=== PATIENT | female | born 1945 | race Caucasian/White ===

== ENCOUNTER 2016-12-21 21:21 | Emergency (ER) | payer MEDICARE, BC ==
[2016-12-21] MEDS ORDERED: Ketorolac 60 MG/2 ML SDV IM ONE (21:46)
--- NOTE | 2016-12-21 22:18 | EDM.PDOC ---
[id number] 4d MEDICAL Time Seen by Provider: 12/21/16 21:40 Source of Information: Reports: Patient, EMS History Limitations: Reports: Intoxication - History of Present Illness INITIAL COMMENTS - FREE TEXT/NARRATIVE: 71-year-old female brought in by EMS after being found unresponsive by her . She was out and had "3 brandies" and went into the bathroom and didn't come out. Her went in and found her lying on the floor and was difficult to arouse. When EMS arrived she was alert and communicating been slurring her speech and appeared intoxicated. There was no outward evidence of injury. Her glucose was checked and was normal. Now that she is here in the emergency room she is complaining of a frontal headache and wants something for pain. No nausea or vomiting, no visual disturbance, she denies any chest wall, abdominal or extremity pain Onset: Unknown/Unsure Location: Reports: Head Severity: Moderate Associated Symptoms: Reports: Headaches, Malaise, Other (Patient appears very intoxicated). Denies: Fever/Chills, Loss of Appetite, Nausea/Vomiting Bilateral Headache Pain Score (Numeric/FACES): 9 - Related Data Allergies Allergy/AdvReac Type Severity Reaction Status Date / Time Penicillins Allergy Swelling Verified 06/19/16 22:53 Home Meds: Home Meds Ezetimibe [Zetia] 1 tab PO DAILY 06/19/16 [History] Insulin Aspart [NovoLOG] 4 units SQ QID 06/19/16 [History] Insulin Glarg,Human.Rec.Analog [Lantus Solostar] 16 units SQ BEDTIME 06/19/16 [ History] Propranolol [Inderal LA] 80 mg PO DAILY 06/19/16 [History] amLODIPine [Norvasc] 2.5 mg PO DAILY 06/19/16 [History] traMADol [Ultram] 50 mg PO ASDIRECTED PRN 06/19/16 [History] Past Medical History HEENT History: Reports: Cataract, Impaired Vision Cardiovascular History: Reports: High Cholesterol, Hypertension [employer] [facility] History: Reports: Endocrine/Metabolic History: Reports: Diabetes, Type I - Infectious Disease History Infectious Disease History: Reports: Chicken Pox, Measles, Mumps - Past Surgical History GI Surgical History: Reports: Appendectomy, Cholecystectomy Female Surgical History: Reports: Hysterectomy Social & Family History - Tobacco Use Smoking Status *Q: Current Some Day Smoker Years of Tobacco use: 20 Packs/Tins Daily: 0.5 Used Tobacco, but Quit: No Second Hand Smoke Exposure: No - Caffeine Use Caffeine Use: Reports: Soda - Alcohol Use Days Per Week of Alcohol Use: 3 Number of Drinks Per Day: 3 Total Drinks Per Week: 9 Date of Last Drink: 12/21/16 Time of Last Drink: 18:30 - Recreational Drug Use Recreational Drug Use: No ED ROS GENERAL - Review of Systems Review Of Systems: See Below Constitutional: Denies: Fever, Chills Respiratory: Denies: Shortness of Breath, Cough Cardiovascular: Denies: Chest Pain GI/Abdominal: Denies: Abdominal Pain, Nausea, Vomiting : Reports: No Symptoms Neurological: Reports: Headache ED EXAM, GENERAL - Physical Exam Exam: See Below Exam Limited By: No Limitations General Appearance: Alert, No Apparent Distress Eye Exam: Bilateral Eye: EOMI, PERRL Head: Atraumatic Neck: Supple, Non-Tender Respiratory/Chest: No Respiratory Distress, Lungs Clear Extremities: Normal Inspection Neurological: Alert, Other (Patient is slurring her speech significantly, appears intoxicated) Skin Exam: Warm, Dry Course - Vital Signs Last Recorded V/S: Last Vital Signs Temp 97.7 F 12/21/16 21:27 Pulse 58 L 12/21/16 22:33 Resp 16 12/21/16 21:27 BP 88/47 L 12/21/16 22:33 Pulse Ox 89 L 12/21/16 22:33 - Orders/Labs/Meds Orders: Active Orders 24 hr Category Date Time Status Head wo Cont [CT] Stat Exams 12/21/16 21:45 Taken Labs: Laboratory Tests 12/21/16 12/21/16 12/21/16 Range/Units 22:07 22:07 22:07 WBC 10.6 (4.5-11.0) K/uL RBC 4.55 (3.30-5.50) M/uL Hgb 14.7 (12.0-15.0) g/dL Hct 42.3 (36.0-48.0) % MCV 93 (80-98) fL MCH 32 H (27-31) pg MCHC 35 (32-36) % Plt Count 321 (150-400) K/uL Neut % (Auto) 34 L (36-66) % Lymph % (Auto) 53 H (24-44) % [place] % (Auto) 7 H (2-6) % Eos % (Auto) 5 H (2-4) % Baso % (Auto) 1 (0-1) % Sodium 140 (140-148) mmol/L Potassium 3.6 (3.6-5.2) mmol/L Chloride 104 (100-108) mmol/L Carbon Dioxide 23 (21-32) mmol/L Anion Gap 13.2 (5.0-14.0) mmol/L BUN 12 (7-18) mg/dL Creatinine 0.8 (0.6-1.0) mg/dL Est Cr Clr Drug Dosing 51.43 mL/min Estimated GFR (MDRD) > 60 (>60) Glucose 198 H (74-106) mg/dL Calcium 8.1 L (8.5-10.1) mg/dL Ethyl Alcohol 286 mg/dL Meds: Medications Discontinued Medications Generic Name Dose Route Start Last Admin Trade Name Freq PRN Reason Stop Dose Admin Hydromorphone HCl 1 mg 12/21/16 23:51 12/21/16 23:55 Dilaudid IM 12/21/16 23:52 1 mg ONETIME ONE Administration Ketorolac Tromethamine 60 mg 12/21/16 21:46 12/21/16 21:52 Toradol IM 12/21/16 21:47 60 mg ONETIME ONE Administration - Re-Assessments/Exams Free Text/Narrative Re-Assessment/Exam: 12/21/16 22:18 Because of the unknown history, headache, and intoxication a CT of the head was performed. Patient was asking for Demerol and Vistaril but was given Toradol pending lab results and CT results. 12/21/16 22:41 CT scan of the head was normal. EtOH was 0.286. The rest of her labs were reassuring and normal, after she returned from the CT scan she slept soundly for an hour. She was discharged with a diagnosis of alcohol intoxication and headache. Departure - Departure Time of Disposition: 00:25 Disposition: Home, Self-Care 01 Condition: Fair Clinical Impression: Alcohol intoxication Qualifiers: Complication of substance-induced condition: uncomplicated Qualified Code(s): F10.920 - Alcohol use, unspecified with intoxication, uncomplicated Headache Qualifiers: Headache type: unspecified Headache chronicity pattern: acute headache Intractability: not intractable Qualified Code(s): R51 - Headache - Discharge Information Instructions: Alcohol Intoxication, [id number] Referrals: PCP,None [Primary Care Provider] - Forms: ED Department Discharge Care Plan Goals: Rest tonight and recheck in the next 1-2 days if not improving satisfactorily. - My Orders Last 24 Hours: My Active Orders 12/21/16 21:45 Head wo Cont [CT] Stat - Assessment/Plan Last 24 Hours: My Active Orders 12/21/16 21:45 Head wo Cont [CT] Stat
[2016-12-21] MEDS ORDERED: HYDROmorphone 1 MG/ML Syringe IM ONE (23:51)
[2016-12-22 00:25] VITALS: BP 88/47
== END 2016-12-22 00:15 | disposition home or self-care (01) ==
LOC: JP.ED 21:21
DX: F10.920 Alcohol use, unspecified with intoxication, uncomplicated (principal); Y90.8 Blood alcohol level of 240 mg/100 ml or more; R51 Headache; E10.9 Type 1 diabetes mellitus without complications; Z79.4 Long term (current) use of insulin; E78.00 Pure hypercholesterolemia, unspecified; I10 Essential (primary) hypertension; Z79.899 Other long term (current) drug therapy; Z72.0 Tobacco use
CPT/HCPCS: 36415; 70450; 80048; 85025; G0480; J1170; J1885; 96372; 99283; 99284-25

== ENCOUNTER 2017-12-21 19:40 | Emergency (ER) | payer MEDICARE, BC ==
[2017-12-21 19:52] VITALS: BP 103/49
[2017-12-21] MEDS ORDERED: Sodium Chloride 0.9% 10 ML Syringe FLUSH PRN (20:13)
[2017-12-21] MEDS ORDERED: Acetaminophen 325 MG Tab, 50 Tab Bulk Bottle PO ONE (20:13)
[2017-12-21] MEDS ORDERED: Sodium Chloride 0.9% 1,000 ML IV SCH (20:15)
--- NOTE | 2017-12-21 20:19 | EDM.PDOC ---
ED HPI GENERAL MEDICAL PROBLEM - General Chief Complaint: General Stated Complaint: SICK Time Seen by Provider: 12/21/17 20:00 Source of Information: Reports: Family (Spouse), Old Records, RN Notes Reviewed History Limitations: Reports: Altered Mental Status - History of Present Illness INITIAL COMMENTS - FREE TEXT/NARRATIVE: EMS arrival, en route patient received Versed intravenous for agitation Chief complaint Decreased responsiveness History of present illness 72-year-old female was with her sitting at the kitchen table They just got home from the region where they had had some sloppy Andres's and had had some brandies during afternoon. While having a conversation, she began slumping over and became unresponsive to the . He was worried about her diabetes so he called 911. When EMS arrived she was still slumped over. They were able to arouse her Her blood sugar was reported as "normal" However when she got up to stand she collapsed to the floor. states that she did not fall hard, there is no head injury. Then it was decided that it was appropriate to bring her to the hospital. En route she became agitated and percent was administered. On arrival here she is confused and doesn't know why she is here is unable to provide history Does complain of headache but no other pain. 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, Other (see below) Other Treatments IT INFRASTRUCTURE ENGINEER: Versed Headache Pain Score (Numeric/FACES): 8 - Related Data Allergies Allergy/AdvReac Type Severity Reaction Status Date / Time Penicillins Allergy Swelling Verified 12/21/17 19:52 Home Meds: Home Meds Ezetimibe [Zetia] 10 mg PO DAILY 06/19/16 [History] Insulin Aspart [NovoLOG] 4 units SQ QID 06/19/16 [History] Insulin Glarg,Human.Rec.Analog [Lantus Solostar] 16 units SQ ASDIRECTED [History] Propranolol [Inderal LA] 80 mg PO DAILY 06/19/16 [History] amLODIPine [Norvasc] 2.5 mg PO DAILY 06/19/16 [History] Hydrocortisone [Cortef] 10 mg PO DAILY 12/21/17 [History] Insulin Glargine,Hum.Rec.Anlog [Basaglar Kwikpen U-100] 15 unit SQ BEDTIME 12/21 [History] Past Medical History HEENT History: Reports: Cataract, Impaired Vision Cardiovascular History: Reports: High 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, 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: Endocrine/Metabolic History: Reports: Diabetes, Type I - Infectious Disease History Infectious Disease History: Reports: Chicken Pox - Past Surgical History Respiratory Surgical History: Reports: None GI Surgical History: Reports: Appendectomy, Cholecystectomy Female Surgical History: Reports: Hysterectomy Neurological Surgical History: Reports: None Musculoskeletal Surgical History: Reports: None Oncologic Surgical History: Reports: None Dermatological Surgical History: Reports: None Social & Family History - Tobacco Use Smoking Status *Q: Current Every Day Smoker Years of Tobacco use: 50 Packs/Tins Daily: 1 Second Hand Smoke Exposure: Yes - Caffeine Use Caffeine Use: Reports: None Other Caffeine Use: decaf coffee - Recreational Drug Use Recreational Drug Use: No ED ROS GENERAL - Review of Systems Review Of Systems: Unable To Obtain (Altered mental status) ED EXAM, GENERAL - Physical Exam Exam: See Below Exam Limited By: Altered Mental Status General Appearance: Lethargic, Other (Vital signs show slightly low blood pressure, no difficulty speaking, speech is slightly slurred, breathing normal, repeat herself, confused as to why she is here) Eye Exam: Bilateral Eye: EOMI, Normal Inspection Ears: Normal External Exam, Hearing Grossly Normal, Other (Discharge/wax occluding both ear canals) Nose: Normal Inspection, Normal Mucosa Throat/Mouth: Normal Oropharynx, Normal Voice, Other (Robbin mouth dry) Head: Atraumatic Neck: Normal Inspection, Supple, Non-Tender. No: Lymphadenopathy (R), Lymphadenopathy (L) Respiratory/Chest: No Respiratory Distress, Lungs Clear, Normal Breath Sounds, No Accessory Muscle Use, Chest Non-Tender Cardiovascular: Normal Peripheral Pulses, Regular Rate, Rhythm GI/Abdominal: Normal Bowel Sounds, Soft, Non-Tender, No Distention. No: Rigid, Rebound, Tender Extremities: Normal Inspection, Other (Tiny abrasion left lower leg) Neurological: No Motor/Sensory Deficits (Moves all limbs independently, strength normal), Confused, Slow to Respond, Memory Loss Recent Events, Other ( Repeating herself) Course - Vital Signs Last Recorded V/S: Last Vital Signs Temp 36.3 C 12/21/17 19:44 Pulse 60 12/21/17 19:44 Resp 13 12/21/17 19:44 BP 103/49 L 12/21/17 19:44 Pulse Ox 96 12/21/17 19:44 - Orders/Labs/Meds Orders: Active Orders 24 hr Category Date Time Status Peripheral IV Care [RC] . DIRECTED Care 12/21/17 20:13 Active Sodium Chloride 0.9% [Normal Saline] 1,000 ml Med 12/21/17 20:15 Active IV ASDIRECTED Sodium Chloride 0.9% [Saline Flush] Med 12/21/17 20:13 Active 10 ml FLUSH ASDIRECTED PRN Peripheral IV Insertion Adult [OM.PC] Routine Oth 12/21/17 20:13 Ordered Medication Orders Sodium Chloride (Normal Saline) 1,000 mls @ 500 mls/hr IV ASDIRECTED PRIMO Last Admin: 12/21/17 20:21 Dose: 500 mls/hr Sodium Chloride (Saline Flush) 10 ml FLUSH ASDIRECTED PRN PRN Reason: Keep Vein Open Last Admin: 12/21/17 20:20 Dose: 10 ml Labs: Laboratory Tests 12/21/17 12/21/17 12/21/17 Range/Units 20:20 20:20 20:20 WBC 9.1 (4.5-11.0) K/uL RBC 4.45 (3.30-5.50) M/uL Hgb 14.4 (12.0-15.0) g/dL Hct 41.3 (36.0-48.0) % MCV 93 (80-98) fL MCH 32 H (27-31) pg MCHC 35 (32-36) % Plt Count 257 (150-400) K/uL Sodium 138 L (140-148) mmol/L Potassium 3.3 L (3.6-5.2) mmol/L Chloride 102 (100-108) mmol/L Carbon Dioxide 24 (21-32) mmol/L Anion Gap 15.3 H (5.0-14.0) mmol/L BUN 22 H D (7-18) mg/dL Creatinine 0.9 (0.6-1.0) mg/dL Est Cr Clr Drug Dosing 44.03 mL/min Estimated GFR (MDRD) > 60 (>60) Glucose 138 H (74-106) mg/dL Lactic Acid 2.6 H (0.4-2.0) mmol/L Calcium 8.0 L (8.5-10.1) mg/dL Total Bilirubin 0.5 (0.2-1.0) mg/dL AST 16 (15-37) U/L ALT 19 (12-78) U/L Alkaline Phosphatase 97 (46-116) U/L Total Protein 6.5 (6.4-8.2) g/dL Albumin 3.3 L (3.4-5.0) g/dL Globulin 3.2 (2.3-3.5) g/dL Albumin/Globulin Ratio 1.0 L (1.2-2.2) Ethyl Alcohol mg/dL 12/21/17 Range/Units 20:20 WBC (4.5-11.0) K/uL RBC (3.30-5.50) M/uL Hgb (12.0-15.0) g/dL Hct (36.0-48.0) % MCV (80-98) fL MCH (27-31) pg MCHC (32-36) % Plt Count (150-400) K/uL Sodium (140-148) mmol/L Potassium (3.6-5.2) mmol/L Chloride (100-108) mmol/L Carbon Dioxide (21-32) mmol/L Anion Gap (5.0-14.0) mmol/L BUN (7-18) mg/dL Creatinine (0.6-1.0) mg/dL Est Cr Clr Drug Dosing mL/min Estimated GFR (MDRD) (>60) Glucose (74-106) mg/dL Lactic Acid (0.4-2.0) mmol/L Calcium (8.5-10.1) mg/dL Total Bilirubin (0.2-1.0) mg/dL AST (15-37) U/L ALT (12-78) U/L Alkaline Phosphatase (46-116) U/L Total Protein (6.4-8.2) g/dL Albumin (3.4-5.0) g/dL Globulin (2.3-3.5) g/dL Albumin/Globulin Ratio (1.2-2.2) Ethyl Alcohol 282 mg/dL Meds: Medications Generic Name Dose Route Start Last Admin Trade Name Freq PRN Reason Stop Dose Admin Sodium Chloride 1,000 mls @ 500 mls/hr 12/21/17 20:15 12/21/17 20:21 Normal Saline IV 500 mls/hr ASDIRECTED PRIMO Administration Sodium Chloride 10 ml 12/21/17 20:13 12/21/17 20:20 Saline Flush FLUSH 10 ml ASDIRECTED PRN Administration Keep Vein Open Discontinued Medications Generic Name Dose Route Start Last Admin Trade Name Freq PRN Reason Stop Dose Admin Acetaminophen 650 mg 12/21/17 20:13 Tylenol Bulk Bottle PO 12/21/17 20:14 NOW ONE Acetaminophen 650 mg 12/21/17 20:21 12/21/17 20:28 Tylenol PO 12/21/17 20:22 650 mg NOW ONE Administration - Re-Assessments/Exams Free Text/Narrative Re-Assessment/Exam: 12/21/17 20:20 72-year-old female exhibiting confusion after unresponsive spell in the fall at home. Does have alcohol on board Answers questions appropriately but shows definite confusion as to why she is here and as to what happened has no memory. Repeating her. Intravenous sa and labs ordered Acetaminophen for headac 12/21/17 21:00 At this time, her wants to be discharged home with her, he thinks he can manage He knows that she is intoxicated and suspects that she's been drinking far more than she says. Labs show evidence of mild dehydration, blood sugar 138 and elevated BUN but creatinine is normal Ambulated with the nurse, needing minimal support so safer discharge. alcohol 282 12/21/17 21:18 Departure - Departure Time of Disposition: 20:57 Disposition: Home, Self-Care 01 Condition: Good Clinical Impression: Moderate dehydration Alcohol intoxication Qualifiers: Complication of substance-induced condition: uncomplicated Qualified Code(s): F10.920 - Alcohol use, unspecified with intoxication, uncomplicated Fall Qualifiers: Encounter type: initial encounter Qualified Code(s): W19.XXXA - Unspecified fall, initial encounter - Discharge Information Instructions: Alcohol Intoxication, [id number] Referrals: PCP,None [Primary Care Provider] - Forms: ED Department Discharge Additional Instructions: Avoid all alcohol consumption only 72 hours to allow a chance for the brain to recover Abstinence from alcohol is recommended if you cannot control the drinking, it is very dangerous to drink to the point that you had fall or become unconscious. Return to emergency if there is abnormal behavior, repeated vomiting, confusion or seizure - My Orders Last 24 Hours: My Active Orders 12/21/17 20:13 Peripheral IV Care [RC] . DIRECTED Sodium Chloride 0.9% [Saline Flush] 10 ml FLUSH ASDIRECTED PRN Peripheral IV Insertion Adult [OM.PC] Routine 12/21/17 20:15 Sodium Chloride 0.9% [Normal Saline] 1,000 ml IV ASDIRECTED - Assessment/Plan Last 24 Hours: My Active Orders 12/21/17 20:13 Peripheral IV Care [RC] . DIRECTED Sodium Chloride 0.9% [Saline Flush] 10 ml FLUSH ASDIRECTED PRN Peripheral IV Insertion Adult [OM.PC] Routine 12/21/17 20:15 Sodium Chloride 0.9% [Normal Saline] 1,000 ml IV ASDIRECTED
[2017-12-21] MEDS ORDERED: Acetaminophen 325 MG Tab PO ONE (20:21)
== END 2017-12-21 21:15 | disposition home or self-care (01) ==
LOC: JP.ED 19:40
DX: E86.0 Dehydration (principal); S80.812A Abrasion, left lower leg, initial encounter; F10.120 Alcohol abuse with intoxication, uncomplicated; E78.00 Pure hypercholesterolemia, unspecified; E10.9 Type 1 diabetes mellitus without complications; F17.210 Nicotine dependence, cigarettes, uncomplicated; Z88.0 Allergy status to penicillin; Z79.899 Other long term (current) drug therapy; W19.XXXA Unspecified fall, initial encounter
CPT/HCPCS: 36415; 80053; 83605; 85027; 96360; 96361; 99285; A9270; G0480; J7030; J7050

== ENCOUNTER 2018-08-27 23:55 | Emergency (ER) | payer MEDICARE, BC ==
[2018-08-28 00:12] VITALS: BP 144/51
[2018-08-28] MEDS: Acetaminophen 500 MG Tab PO ONE (02:12)
--- NOTE | 2018-08-28 02:37 | EDM.PDOC ---
ED HPI GENERAL MEDICAL PROBLEM - General Chief Complaint: Diabetic Complaint Stated Complaint: MEDICAL [facility] Time Seen by Provider: 08/28/18 01:26 Source of Information: Reports: Patient History Limitations: Reports: No Limitations - History of Present Illness INITIAL COMMENTS - FREE TEXT/NARRATIVE: 73-year-old history of diabetes presents with concerns of headache and transient changes in speech. She was sitting at the table this evening when she felt like she had difficulty with her speech. This intermittently lasted for an hour along with some confusion. She was unable to get words out. She had no other neurologic symptoms such as facial droop or weakness in the extremities. Her checked her blood sugar and it was 58. He then gave her Coca-Cola and her symptoms improved. She had been drinking earlier in the day, reports she stopped around 3 PM. She reports no history of similar symptoms in the past , asked her about a ED visit in December for altered mental status at [facility] and neither her nor her remember her come into the hospital for this. She has no history of stroke. She is anticoagulated. She still concerned of a headache and a left parietal region and left neck. It is aching. He does feel somewhat like when she had migraines in her 50s. headache Pain Score (Numeric/FACES): 9 - Related Data Allergies Allergy/AdvReac Type Severity Reaction Status Date / Time Penicillins Allergy Swelling Verified 08/28/18 00:09 Home Meds: Home Meds Ezetimibe [Zetia] 10 mg PO DAILY 06/19/16 [History] Insulin Aspart [NovoLOG] 4 units SQ QID 06/19/16 [History] Insulin Glarg,Human.Rec.Analog [Lantus Solostar] 16 units SQ ASDIRECTED [History] Propranolol [Inderal LA] 80 mg PO DAILY 06/19/16 [History] amLODIPine [Norvasc] 2.5 mg PO DAILY 06/19/16 [History] Hydrocortisone [Cortef] 10 mg PO DAILY 12/21/17 [History] Insulin Glargine,Hum.Rec.Anlog [Basaglar Kwikpen U-100] 15 unit SQ BEDTIME 12/21 [History] Past Medical History HEENT History: Reports: Cataract, Impaired Vision Cardiovascular History: Reports: High Cholesterol, Hypertension, Other (See Below) Other Cardiovascular History: prolapse mitral 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: Reports: 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 Endocrine/Metabolic History: Reports: Diabetes, Type I - Infectious Disease History Infectious Disease History: Reports: Chicken Pox, Measles, Mumps - Past Surgical History HEENT Surgical History: Reports: Cataract Surgery, Oral Surgery Respiratory Surgical History: Reports: None GI Surgical History: Reports: Appendectomy Female Surgical History: Reports: Tubal Ligation Musculoskeletal Surgical History: Reports: Other (See Below) Other Musculoskeletal Surgeries/Procedures:: right upper arm surgical repair Oncologic Surgical History: Reports: None Social & Family History - Tobacco Use Smoking Status *Q: Current Every Day Smoker Years of Tobacco use: 50 Packs/Tins Daily: 0.5 - Caffeine Use Caffeine Use: Reports: None Other Caffeine Use: decaf coffee - Recreational Drug Use Recreational Drug Use: No ED ROS GENERAL - Review of Systems Review Of Systems: See Below Constitutional: Reports: No Symptoms HEENT: Reports: No Symptoms Respiratory: Reports: No Symptoms Cardiovascular: Reports: No Symptoms Endocrine: Reports: No Symptoms GI/Abdominal: Reports: No Symptoms : Reports: No Symptoms Musculoskeletal: Reports: No Symptoms Skin: Reports: No Symptoms Neurological: Reports: Headache, Trouble Speaking Psychiatric: Reports: No Symptoms Hematologic/Lymphatic: Reports: No Symptoms Immunologic: Reports: No Symptoms ED EXAM GENERAL NO PERIP PULSE - Physical Exam Exam: See Below Exam Limited By: No Limitations General Appearance: Alert, No Apparent Distress Eye Exam: Bilateral Eye: EOMI Ears: Normal External Exam Nose: Normal Inspection Throat/Mouth: Normal Inspection Head: Atraumatic, Normocephalic Neck: Normal Inspection Respiratory/Chest: Lungs Clear Cardiovascular: Regular Rate, Rhythm GI/Abdominal: Soft, Non-Tender Back Exam: Normal Inspection Extremities: Normal Inspection Neurological: Alert, Oriented, CN II-XII Intact, Other (Speech is fluid. No pronator drift. Finger-nose testing normal. Strength extremities over 5 and symmetric.) Psychiatric: Normal Affect, Normal Mood Skin Exam: Warm, Dry Course - Vital Signs Last Recorded V/S: Last Vital Signs Temp 35.5 C 08/28/18 00:23 Pulse 51 L 08/28/18 00:23 Resp 13 08/28/18 00:23 BP 144/51 H 08/28/18 00:23 Pulse Ox 95 08/28/18 00:23 - Orders/Labs/Meds Orders: Active Orders 24 hr Category Date Time Status Head wo Cont [CT] Stat Exams 08/28/18 02:19 Taken Labs: Laboratory Tests 08/28/18 08/28/18 Range/Units 00:40 00:40 Sodium 140 (140-148) mmol/L Potassium 4.0 (3.6-5.2) mmol/L Chloride 105 (100-108) mmol/L Carbon Dioxide 17 L (21-32) mmol/L Anion Gap 22.0 H (5.0-14.0) mmol/L BUN 14 (7-18) mg/dL Creatinine 0.7 (0.6-1.0) mg/dL Est Cr Clr Drug Dosing 55.77 mL/min Estimated GFR (MDRD) > 60 (>60) Glucose 192 H (74-106) mg/dL Calcium 8.8 (8.5-10.1) mg/dL Ethyl Alcohol 119 mg/dL Meds: Medications Discontinued Medications Generic Name Dose Route Start Last Admin Trade Name Freq PRN Reason Stop Dose Admin Acetaminophen 1,000 mg 08/28/18 01:59 08/28/18 02:12 Tylenol Extra Strength PO 08/28/18 02:00 1,000 mg ONETIME ONE Administration Prochlorperazine Edisylate 5 51 mls @ 150 mls/hr 08/28/18 01:58 08/28/18 02: 39 mg/ Sodium Chloride IV 08/28/18 02:18 Not Given ONETIME ONE Prochlorperazine Edisylate 5 mg 08/28/18 02:37 08/28/18 02:47 Compazine IVPUSH 08/28/18 02:38 5 mg ONETIME ONE Administration - Re-Assessments/Exams Free Text/Narrative Re-Assessment/Exam: 73-year-old presents to concerns of headache and transient speech changes. She is a diabetic and was hypoglycemic, although the level was only registered as 58 on her own glucometer. She also endorses EtOH use earlier today and still has a positive ethanol level. She has a history of similar presentations in the past, as recently as December 21 this last year which patient or her remember. I do question the reliability of her history given this. She is neurologically intact now. She certainly has risk factors for TIA. I discussed this with the patient and optimally we would do a CT angiogram to image her head and neck vessels however this is not available at her facility at night. We are going to obtain noncontrast head CT given her headache to rule out hemorrhage. Overall I do believe that likely this is vascular in origin is low given her similar presentations in the past along with alcohol use today. 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 Will treat her headache with Compazine and Tylenol. She will likely be appropriate for discharge pending normal imaging and final reassessment. 08/28/18 02:31 Free Text/Narrative Re-Assessment/Exam: CT head unremarkable on wet read Headache improved Anticipate discharge pending formal radiology review of head CT 08/28/18 03:19 Departure - Departure Time of Disposition: 03:34 Disposition: Home, Self-Care 01 Clinical Impression: Headache Qualifiers: Headache type: unspecified Headache chronicity pattern: acute headache Intractability: not intractable Qualified Code(s): R51 - Headache - Discharge Information Referrals: PCP,None [Primary Care Provider] - Forms: ED Department Discharge Additional Instructions: We did not find a cause for your symptoms, they may have been due to your alcohol consumption today. As discussed, it is important that you follow up with your primary doctor Return to the ER for return of symptoms - My Orders Last 24 Hours: My Active Orders 08/28/18 02:19 Head wo Cont [CT] Stat - Assessment/Plan Last 24 Hours: My Active Orders 08/28/18 02:19 Head wo Cont [CT] Stat
[2018-08-28] MEDS: Prochlorperazine 5 MG in Sodium Chloride 0.9% 50 ML IV ONE (02:39)
[2018-08-28] MEDS: Prochlorperazine 10 MG/2 ML SDV IVPUSH ONE (02:47)
--- NOTE | 2018-08-28 03:32 | CRLCT ---
INDICATION: Headache, speech difficulty TECHNIQUE: CT head without contrast. COMPARISON: 12/21/2016 FINDINGS: CSF spaces: Within normal limits for age. Brain parenchyma: The hawley-white differentiation is normal. No sign of mass, hemorrhage, or midline shift. Skull base and calvarium: Pansinus mucosal thickening. The visualized orbits are grossly unremarkable. No skull fractures. IMPRESSION: No gross intracranial abnormalities. Pansinus mucosal thickening. Dictated by Luis Andre MD @ 08/28/2018 3:30:40 AM Please note that all CT scans at this facility use dose modulation, iterative reconstruction, and/or weight-based dosing when appropriate to reduce radiation dose to as low as reasonably achievable. Dictated by: Luis Andre MD @ 08/28/2018 03:30:47 (Electronically Signed)
== END 2018-08-28 03:52 | disposition home or self-care (01) ==
LOC: JP.ED 23:55
DX: R51 Headache (principal); I10 Essential (primary) hypertension; E10.9 Type 1 diabetes mellitus without complications; F17.210 Nicotine dependence, cigarettes, uncomplicated; Z88.0 Allergy status to penicillin; Z79.4 Long term (current) use of insulin; Z98.49 Cataract extraction status, unspecified eye; Z98.51 Tubal ligation status; Z90.49 Acquired absence of other specified parts of digestive tract
CPT/HCPCS: 36415; 70450; 80048; 96374; 99284; A9270; G0480; J0780

== ENCOUNTER 2021-12-03 13:01 | Emergency (ER) | payer MEDICARE, BC ==
[2021-12-03] MEDS ORDERED: cefTRIAXone 1 GM in Sodium Chloride 0.9% 50 ML IV ONE (15:00)
[2021-12-03 15:07] VITALS: BP 153/48; PULSE 66
== END 2021-12-03 15:30 | disposition home or self-care (01) ==
LOC: JP.ED 13:01
DX: N30.00 Acute cystitis without hematuria (principal); R41.0 Disorientation, unspecified; E78.00 Pure hypercholesterolemia, unspecified; I10 Essential (primary) hypertension; E10.9 Type 1 diabetes mellitus without complications; Z88.0 Allergy status to penicillin; Z79.4 Long term (current) use of insulin
CPT/HCPCS: 36415; 70450; 80048; 81001; 85025; 86140; 87086; 87088; 87186; 96365; 99285; J0696

== ENCOUNTER 2021-12-13 16:39 | Emergency (ER) | payer MEDICARE, BC ==
[2021-12-13] MEDS ORDERED: Ondansetron 4 MG Tab.DIS PO ONE (16:47)
[2021-12-13] MEDS ORDERED: Sodium Chloride 0.9% 1,000 ML IV SCH ×2 (17:45→19:30)
[2021-12-13] MEDS ORDERED: Prochlorperazine 5 MG in Sodium Chloride 0.9% 50 ML IV ONE (17:45)
[2021-12-13] MEDS ORDERED: Insulin Lispro 100 Unit/ML 3 ML KwikPen SUBCUT ONE (19:26)
[2021-12-13] MEDS ORDERED: 50% Dextrose in Water 50 ML Syringe IVPUSH PRN (19:26)
[2021-12-13] MEDS ORDERED: Glucagon,Human Recombinant 1 MG Vial IM PRN (19:26)
[2021-12-13 19:40] LABS: ESTIMATED GFR 47 mL/min (>60)
[2021-12-13 20:04] VITALS: BP 171/57; PULSE 75
[2021-12-13] MEDS ORDERED: Prochlorperazine 10 MG Tab PO ONE (20:12)
== END 2021-12-13 20:54 | disposition home or self-care (01) ==
LOC: JP.ED 16:39
DX: K52.9 Noninfective gastroenteritis and colitis, unspecified (principal); I10 Essential (primary) hypertension; E10.9 Type 1 diabetes mellitus without complications; Z88.0 Allergy status to penicillin
CPT/HCPCS: 36415; 36600; 80053; 81001; 82150; 82803; 83690; 83735; 84443; 84484; 87086; 96361; 96365; 99282; 99284; J0780; J1815; J3490; J7030; Q0162; Q0164

== ENCOUNTER 2021-12-18 13:47 | Inpatient (IN) | payer MEDICARE, BC ==
[2021-12-18] MEDS ORDERED: Sodium Chloride 0.9% 10 ML Syringe FLUSH PRN (14:18)
[2021-12-18] MEDS ORDERED: Sodium Chloride 0.9% 500 ML IV ONE (14:19)
[2021-12-18 15:34] LABS: ESTIMATED GFR 24 mL/min (>60); TROPONIN I HIGH SENSITIVITY 18.9 pg/mL (<=60.3)
[2021-12-18] MEDS ORDERED: Acetaminophen 325 MG Tab PO PRN (19:04)
[2021-12-18] MEDS ORDERED: Ondansetron 4 MG Tab.DIS PO PRN (19:04)
[2021-12-18] MEDS ORDERED: Albuterol 0.083% 2.5 MG/3 ML Neb Soln NEB PRN (19:04)
[2021-12-18] MEDS ORDERED: HYDROmorphone 1 MG/ML Syringe IVPUSH PRN (19:04)
[2021-12-18] MEDS ORDERED: Ondansetron 4 MG/2 ML SDV IV PRN (19:04)
[2021-12-18] MEDS ORDERED: Magnesium Hydroxide 400 MG/5 ML Susp 30 ML Cup PO PRN (19:04)
[2021-12-18 19:06] LABS: CORONAVIRUS COVID-19 NAA NEGATIVE (NEGATIVE)
[2021-12-18] MEDS: cefTRIAXone 1 GM in Sodium Chloride 0.9% 50 ML IV SCH (19:11)
[2021-12-18] MEDS ORDERED: HYDROmorphone 0.5 MG/0.5 ML Syringe IVPUSH PRN (19:19)
[2021-12-18] MEDS: HYDROmorphone 2 MG Tab PO PRN (19:21)
[2021-12-18] MEDS ORDERED: Insulin Glargine,Human Rec. Analog 100 Units/ML 3 ML Pen SUBCUT SCH (21:00)
[2021-12-18] MEDS: Pantoprazole 40 MG Tab.CR PO SCH (21:09)
[2021-12-18] MEDS: Lactobacillus Rhamnosus GG (Probiotic) Cap PO SCH (21:09)
[2021-12-18] MEDS: atorvaSTATin 10 MG Tab PO SCH (21:09)
[2021-12-18] MEDS: Melatonin 3 MG Tab PO SCH (21:09)
[2021-12-18] MEDS: Insulin Lispro 100 Unit/ML 3 ML KwikPen SUBCUT SCH (21:15)
[2021-12-18] MEDS: Sodium Chloride 0.9% 1,000 ML IV SCH (22:10)
[2021-12-19] MEDS: Sodium Chloride 0.9% 1,000 ML IV SCH (06:26)
[2021-12-19] MEDS: Levothyroxine 50 MCG Tab PO SCH (07:20)
[2021-12-19] MEDS: HYDROmorphone 2 MG Tab PO PRN ×2 (07:20→17:58)
[2021-12-19] MEDS: Insulin Lispro 100 Unit/ML 3 ML KwikPen SUBCUT SCH ×4 (08:42→21:06)
[2021-12-19] MEDS: Ezetimibe 10 MG Tab PO SCH (08:44)
[2021-12-19] MEDS: Aspirin 81 MG Tab.EC PO SCH (08:44)
[2021-12-19] MEDS: Lactobacillus Rhamnosus GG (Probiotic) Cap PO SCH ×2 (08:44→21:07)
[2021-12-19] MEDS: Clopidogrel 75 MG Tab PO SCH (08:44)
[2021-12-19] MEDS: Gabapentin 300 MG Cap PO SCH (08:44)
[2021-12-19] MEDS ORDERED: Sodium Chloride 0.9% 1,000 ML IV SCH (10:30)
[2021-12-19] MEDS: cefTRIAXone 1 GM in Sodium Chloride 0.9% 50 ML IV SCH (17:43)
[2021-12-19] MEDS ORDERED: Insulin Glargine,Human Rec. Analog 100 Units/ML 3 ML Pen SUBCUT SCH (21:00)
[2021-12-19] MEDS: Pantoprazole 40 MG Tab.CR PO SCH (21:08)
[2021-12-19] MEDS: Melatonin 3 MG Tab PO SCH (21:08)
[2021-12-19] MEDS: atorvaSTATin 10 MG Tab PO SCH (21:08)
[2021-12-20] MEDS: HYDROmorphone 2 MG Tab PO PRN (01:10)
[2021-12-20 04:39] VITALS: BP 124/81; PULSE 55
[2021-12-20] MEDS: Levothyroxine 50 MCG Tab PO SCH (07:31)
[2021-12-20] MEDS: Insulin Lispro 100 Unit/ML 3 ML KwikPen SUBCUT SCH (08:14)
[2021-12-20] MEDS: Ezetimibe 10 MG Tab PO SCH (08:15)
[2021-12-20] MEDS: Gabapentin 300 MG Cap PO SCH (08:15)
[2021-12-20] MEDS: Lactobacillus Rhamnosus GG (Probiotic) Cap PO SCH (08:15)
[2021-12-20] MEDS: Clopidogrel 75 MG Tab PO SCH (08:15)
[2021-12-20] MEDS: Aspirin 81 MG Tab.EC PO SCH (08:15)
== END 2021-12-20 10:50 | disposition home or self-care (01) | DRG 682 ==
LOC: JP.ED 13:47 → JP.MS 18:01
PROVIDERS: ADMIT Internal Medicine; ATTEND Internal Medicine
DX: N17.9 Acute kidney failure, unspecified (principal); L89.153 Pressure ulcer of sacral region, stage 3; E87.1 Hypo-osmolality and hyponatremia; E10.622 Type 1 diabetes mellitus with other skin ulcer; N12 Tubulo-interstitial nephritis, not specified as acute or chronic; R41.82 Altered mental status, unspecified; L98.429 Non-pressure chronic ulcer of back with unspecified severity; I73.9 Peripheral vascular disease, unspecified; D72.829 Elevated white blood cell count, unspecified; H54.7 Unspecified visual loss; F17.200 Nicotine dependence, unspecified, uncomplicated; R53.1 Weakness; E10.51 Type 1 diabetes mellitus with diabetic peripheral angiopathy without gangrene; R32 Unspecified urinary incontinence; Z79.890 Hormone replacement therapy; R15.9 Full incontinence of feces; Z90.49 Acquired absence of other specified parts of digestive tract; E03.8 Other specified hypothyroidism; B37.3 Candidiasis of vulva and vagina; E78.00 Pure hypercholesterolemia, unspecified; I10 Essential (primary) hypertension; Z88.0 Allergy status to penicillin; Z79.4 Long term (current) use of insulin; Z79.899 Other long term (current) drug therapy; Z20.822 Contact with and (suspected) exposure to COVID-19; R06.02 Shortness of breath
CPT/HCPCS: 0241U; 36415; 70450; 71045; 73630; 80048; 80053; 81001; 82009; 82803; 82947; 83605; 83735; 83880; 84145; 84439; 84443; 84484; 85025; 85027; 85651; 86140; 87040; 87086; 93005; 93010; 96360; 97161; 97530; 99222; 99232; 99238; 99285; A9270-GY; J0696; J1815; J1815-GY; J3490; J7030; J7040; Q0162

== ENCOUNTER 2021-12-30 16:48 | Observation (INO) | payer MEDICARE, BC ==
[2021-12-30] MEDS ORDERED: Ondansetron 4 MG/2 ML SDV IVPUSH ONE (17:28)
[2021-12-30] MEDS: Sodium Chloride 0.9% 1,000 ML IV SCH ×3 (18:07→20:00)
[2021-12-30 18:40] LABS: ESTIMATED GFR 39 mL/min (>60)
[2021-12-30] MEDS ORDERED: LORazepam 2 MG/ML SDV IVPUSH ONE (19:05)
[2021-12-30] MEDS ORDERED: Glucagon,Human Recombinant 1 MG Vial IM PRN ×2 (19:06→19:42)
[2021-12-30] MEDS ORDERED: 50% Dextrose in Water 50 ML Syringe IVPUSH PRN ×2 (19:06→19:42)
[2021-12-30] MEDS ORDERED: Insulin Regular, Human 100 Units/ML 3 ML Vial SUBCUT ONE (19:06)
[2021-12-30] MEDS ORDERED: Melatonin 3 MG Tab PO PRN (19:42)
[2021-12-30] MEDS ORDERED: oxyCODONE 5 MG Tab PO PRN (19:42)
[2021-12-30] MEDS ORDERED: LORazepam 1 MG Tab PO PRN (19:42)
[2021-12-30] MEDS ORDERED: Albuterol/Ipratropium 3.0-0.5 MG/3 ML Neb Soln NEB PRN (19:42)
[2021-12-30] MEDS ORDERED: Morphine 2 MG/ML SYRINGE IVPUSH PRN (19:42)
[2021-12-30] MEDS ORDERED: Docusate Sodium 100 MG Cap PO PRN (19:42)
[2021-12-30] MEDS ORDERED: HYDROmorphone 2 MG Tab PO PRN (19:42)
[2021-12-30] MEDS ORDERED: Acetaminophen 325 MG Tab PO PRN (19:42)
[2021-12-30] MEDS ORDERED: Bisacodyl 5 MG Tab PO PRN (19:42)
[2021-12-30] MEDS ORDERED: Ondansetron 4 MG/2 ML SDV IV PRN (19:42)
[2021-12-30] MEDS ORDERED: Ondansetron 4 MG Tab.DIS PO PRN (19:42)
[2021-12-30] MEDS ORDERED: Albuterol 0.083% 2.5 MG/3 ML Neb Soln NEB PRN (19:42)
[2021-12-30] MEDS ORDERED: cefTRIAXone 1 GM in Sodium Chloride 0.9% 50 ML IV SCH (20:00)
[2021-12-30] MEDS ORDERED: Magnesium Sulfate/Water 2 GM in Premix Bag 1 BAG IV ONE (20:22)
[2021-12-30] MEDS ORDERED: Pantoprazole 40 MG Vial IVPUSH SCH (21:00)
[2021-12-30] MEDS ORDERED: Pantoprazole 40 MG Vial IV SCH (21:00)
[2021-12-30] MEDS ORDERED: Insulin Glargine,Human Rec. Analog 100 Units/ML 3 ML Pen SUBCUT SCH (22:00)
[2021-12-30] MEDS: Insulin Lispro 100 Unit/ML 3 ML KwikPen SUBCUT SCH (22:04)
[2021-12-31] MEDS: Sodium Chloride 0.9% 1,000 ML IV SCH ×2 (04:20→14:13)
[2021-12-31] MEDS ORDERED: 50% Dextrose in Water 50 ML Syringe IV ONE (05:26)
[2021-12-31] MEDS ORDERED: Potassium Chloride 20 MEQ in Premix Bag 1 BAG IV SCH (05:45)
[2021-12-31] MEDS ORDERED: Lidocaine 1% 5 ML VIAL INJECT SCH (05:45)
[2021-12-31] MEDS ORDERED: Potassium Chloride 20 MEQ, Lidocaine 1% 2 ML in Sodium Chloride 0.9% 100 ML IV SCH (08:00)
[2021-12-31] MEDS: Insulin Lispro 100 Unit/ML 3 ML KwikPen SUBCUT SCH ×3 (08:16→16:34)
[2021-12-31] MEDS ORDERED: Insulin Lispro 100 Unit/ML 3 ML KwikPen SUBCUT SCH (11:00)
[2021-12-31] MEDS ORDERED: Potassium Chloride 20 MEQ Tab.ER PO ONE (11:30)
[2021-12-31] MEDS ORDERED: Prochlorperazine 10 MG Tab PO PRN (12:58)
[2021-12-31] MEDS ORDERED: Propranolol 80 MG Cap.ER PO SCH (13:00)
[2021-12-31] MEDS ORDERED: Clopidogrel 75 MG Tab PO SCH (13:00)
[2021-12-31] MEDS ORDERED: Levothyroxine 50 MCG Tab PO SCH (13:00)
[2021-12-31] MEDS ORDERED: Ezetimibe 10 MG Tab PO SCH (13:00)
[2021-12-31] MEDS ORDERED: Losartan 25 MG Tab PO SCH (13:00)
[2021-12-31] MEDS ORDERED: amLODIPine 5 MG Tab PO SCH (13:00)
[2021-12-31] MEDS ORDERED: Gabapentin 300 MG Cap PO SCH (14:00)
[2021-12-31 14:24] VITALS: BP 128/54; PULSE 72
[2021-12-31] MEDS ORDERED: Pantoprazole 40 MG Tab.CR PO SCH (21:00)
[2021-12-31] MEDS ORDERED: atorvaSTATin 10 MG Tab PO SCH (21:00)
== END 2021-12-31 17:45 | disposition home health service (06) ==
LOC: JP.ED 16:48 → JP.MS 18:42
PROVIDERS: ADMIT Internal Medicine; ATTEND Internal Medicine
DX: K52.9 Noninfective gastroenteritis and colitis, unspecified (principal); E10.622 Type 1 diabetes mellitus with other skin ulcer; L98.499 Non-pressure chronic ulcer of skin of other sites with unspecified severity; E03.4 Atrophy of thyroid (acquired); I25.10 Atherosclerotic heart disease of native coronary artery without angina pectoris; E78.00 Pure hypercholesterolemia, unspecified; I10 Essential (primary) hypertension; E87.6 Hypokalemia; R15.9 Full incontinence of feces; L98.429 Non-pressure chronic ulcer of back with unspecified severity; Z98.890 Other specified postprocedural states; Z89.431 Acquired absence of right foot; Z88.0 Allergy status to penicillin; Z79.899 Other long term (current) drug therapy; Z79.890 Hormone replacement therapy; Z79.82 Long term (current) use of aspirin; Z20.822 Contact with and (suspected) exposure to COVID-19
CPT/HCPCS: 36415; 80048; 80053; 82947; 83605; 83690; 83735; 84132; 85025; 87040; 96361; 96365; 96366; 96367; 96374; 96375; 96376; 99285; A9270; C9113; G0378; J0696; J1815; J2001; J2060; J2405; J3475; J3480; J3490; J7030; U0002

== ENCOUNTER 2022-02-22 17:04 | Emergency (ER) | payer MEDICARE, BC ==
[2022-02-22] MEDS ORDERED: Sodium Chloride 0.9% 10 ML Syringe FLUSH PRN ×2 (17:50→19:44)
[2022-02-22] MEDS ORDERED: Ondansetron 4 MG/2 ML SDV IVPUSH ONE (17:52)
[2022-02-22] MEDS ORDERED: Sodium Chloride 0.9% 1,000 ML IV SCH ×3 (18:00→19:45)
[2022-02-22 18:10] LABS: ESTIMATED GFR 42 mL/min (>60)
[2022-02-22] MEDS ORDERED: HYDROmorphone 0.5 MG/0.5 ML Syringe IVPUSH ONE (18:33)
[2022-02-22 19:13] VITALS: BP 188/85; PULSE 85
[2022-02-22] MEDS ORDERED: Insulin Regular in 0.9 % NACL 100 ML IV SCH (19:45)
== END 2022-02-22 20:48 ==
LOC: JP.ED 17:04
DX: E10.10 Type 1 diabetes mellitus with ketoacidosis without coma (principal); R11.2 Nausea with vomiting, unspecified; I10 Essential (primary) hypertension; F17.210 Nicotine dependence, cigarettes, uncomplicated; Z88.0 Allergy status to penicillin; Z79.899 Other long term (current) drug therapy; Z79.4 Long term (current) use of insulin; Z79.82 Long term (current) use of aspirin; Z90.49 Acquired absence of other specified parts of digestive tract; Z20.822 Contact with and (suspected) exposure to COVID-19
CPT/HCPCS: 36415; 80053; 81001; 82009; 82803; 82947; 85025; 96361; 96374; 96375; 99285; J1170; J1815; J2405; J7030; U0002

== ENCOUNTER 2025-04-06 01:47 | Emergency (ER) | payer MEDICARE, BC ==
[2025-04-06 04:08] LABS: BASOPHILS ABSOLUTE AUTO 0.06 K/uL (0.00-0.10); BASOPHILS PERCENT AUTO 0.5 % (0.1-1.3); EOSINOPHILS ABSOLUTE AUTO 0.11 K/uL (0.00-0.40); EOSINOPHILS PERCENT AUTO 1.0 % (0.0-5.4); IMMATURE GRAN ABSOLUTE AUTO 0.04 K/uL (0.00-0.23); IMMATURE GRAN PERCENT AUTO 0.3 % (0.0-0.7); LYMPHOCYTES ABSOLUTE AUTO 3.71 K/uL (0.8-3.3); LYMPHOCYTES PERCENT AUTO 32.1 % (11.4-47.7); MONOCYTES ABSOLUTE AUTO 0.95 K/uL (0.20-0.90); MONOCYTES PERCENT AUTO 8.2 % (3.3-12.6); NEUTROPHILS ABSOLUTE AUTO 6.69 K/uL (1.0-7.6); NEUTROPHILS PERCENT AUTO 57.9 % (40.0-78.1); PLATELET COUNT,PLT 322 K/uL (130-375); RED BLOOD CELL COUNT 4.41 M/uL (3.77-5.24); WHITE BLOOD CELL COUNT,WBC 11.6 K/uL (3.2-11.0)
[2025-04-06 04:29] LABS: A/G RATIO 0.9 (1.2-2.2); ALANINE AMINOTRANSFERASE,ALT 19 U/L (12-78); ASPARTATE AMNIOTRANSFERASE,AST 18 U/L (15-37); BILIRUBIN TOTAL 0.5 mg/dL (0.2-1.0); BLOOD UREA NITROGEN,BUN 18 mg/dL (7-18); CARBON DIOXIDE,CO2 25 mmol/L (21-32); CHLORIDE,CL 101 mmol/L (100-108); CREATININE 1.3 mg/dL (0.6-1.0); ESTIMATED GFR 42 mL/min (>60); GLUCOSE RANDOM 115 mg/dL (74-106); POTASSIUM,K 3.9 mmol/L (3.6-5.2); PROTEIN TOTAL,TP 7.2 g/dL (6.4-8.2); SODIUM,NA 137 mmol/L (140-148); TROPONIN I HIGH SENSITIVITY 36.8 pg/mL (<=60.3)
[2025-04-06 08:26] VITALS: BP 138/52; PULSE 64
== END 2025-04-06 09:54 ==
LOC: JP.ED 01:47
DX: E10.649 Type 1 diabetes mellitus with hypoglycemia without coma (principal); R00.1 Bradycardia, unspecified; I10 Essential (primary) hypertension; E78.00 Pure hypercholesterolemia, unspecified; Z90.49 Acquired absence of other specified parts of digestive tract; Z88.0 Allergy status to penicillin; Z79.4 Long term (current) use of insulin; Z79.82 Long term (current) use of aspirin; Z79.890 Hormone replacement therapy; Z79.899 Other long term (current) drug therapy
CPT/HCPCS: 36415; 80053; 82947; 84443; 84484; 85025; 99285

== ENCOUNTER 2025-04-18 23:32 | Emergency (ER) | payer MEDICARE, BC ==
[2025-04-18 23:45] VITALS: BP 178/48; PULSE 50
[2025-04-19 00:05] LABS: PLATELET COUNT,PLT 302 K/uL (130-375); RED BLOOD CELL COUNT 4.50 M/uL (3.77-5.24); WHITE BLOOD CELL COUNT,WBC 9.1 K/uL (3.2-11.0)
[2025-04-19 00:08] LABS: BLOOD UREA NITROGEN,BUN 20.0 mg/dL (7-18); CARBON DIOXIDE,CO2 26.0 mmol/L (21-32); CHLORIDE,CL 99.0 mmol/L (100-108); CREATININE 1.2 mg/dL (0.6-1.0); EST CRCL DRUG DOSING (CG) 33.65 mL/min; ESTIMATED GFR 46.0 mL/min (>60); GLUCOSE RANDOM 336.0 mg/dL (74-106); POTASSIUM,K 4.1 mmol/L (3.6-5.2); SODIUM,NA 134.0 mmol/L (140-148)
[2025-04-19 00:26] LABS: EOSINOPHILS PERCENT MAN 4 % (2-4); LYMPHOCYTES PERCENT MAN 40 % (24-44); MONOCYTES PERCENT MAN 6 % (2-6); SEG NEUTROPHILS PERCENT MAN 50 % (36-66)
== END 2025-04-19 01:35 ==
LOC: JP.ED 23:32
DX: E10.65 Type 1 diabetes mellitus with hyperglycemia (principal); I10 Essential (primary) hypertension; E78.00 Pure hypercholesterolemia, unspecified; Z90.49 Acquired absence of other specified parts of digestive tract; Z88.0 Allergy status to penicillin; Z79.4 Long term (current) use of insulin; Z79.82 Long term (current) use of aspirin; Z79.890 Hormone replacement therapy; Z79.899 Other long term (current) drug therapy
CPT/HCPCS: 36415; 80048; 85025; 99284; A9270

== ENCOUNTER 2025-05-16 01:31 | Emergency (ER) | payer MEDICARE, BC ==
[2025-05-16] MEDS: 50% Dextrose in Water 50 ML Syringe IVPUSH ONE (01:52)
[2025-05-16] MEDS: 50% Dextrose in Water 50 ML Syringe ONE (02:05)
[2025-05-16 02:53] LABS: A/G RATIO 0.9 (1.2-2.2); ALANINE AMINOTRANSFERASE,ALT 25 U/L (12-78); ASPARTATE AMNIOTRANSFERASE,AST 25 U/L (15-37); BILIRUBIN TOTAL 0.5 mg/dL (0.2-1.0); BLOOD UREA NITROGEN,BUN 14 mg/dL (7-18); CARBON DIOXIDE,CO2 27 mmol/L (21-32); CHLORIDE,CL 104 mmol/L (100-108); CREATININE 1.0 mg/dL (0.6-1.0); EST CRCL DRUG DOSING (CG) 42.00 mL/min; ESTIMATED GFR 57 mL/min (>60); GLUCOSE RANDOM 105 mg/dL (74-106); POTASSIUM,K 3.6 mmol/L (3.6-5.2); PROTEIN TOTAL,TP 7.6 g/dL (6.4-8.2); SODIUM,NA 141 mmol/L (140-148)
[2025-05-16 03:21] LABS: APPEARANCE,URINE SLIGHTLY CLOUDY (CLEAR); GLUCOSE,URINE 250 mg/dL (NEGATIVE); OCCULT BLOOD,URINE TRACE-LYSED (NEGATIVE)
[2025-05-16 03:25] LABS: SQUAMOUS EPITHELIAL CELLS,UR FEW /HPF; UROTHELIAL CELLS,URINE NOT SEEN /HPF
[2025-05-16 07:30] VITALS: BP 102/26; PULSE 64
== END 2025-05-16 09:25 | disposition home or self-care (01) ==
LOC: JP.ED 01:31
DX: E10.649 Type 1 diabetes mellitus with hypoglycemia without coma (principal); N39.0 Urinary tract infection, site not specified; I10 Essential (primary) hypertension; E78.00 Pure hypercholesterolemia, unspecified; Z88.0 Allergy status to penicillin; Z79.4 Long term (current) use of insulin; Z79.890 Hormone replacement therapy; Z79.899 Other long term (current) drug therapy
CPT/HCPCS: 36415; 70450; 80053; 81001; 82947; 87086; 87088; 87186; 93005; 96374; 99285; A9270; J1815

== ENCOUNTER 2025-05-17 00:23 | Emergency (ER) | payer MEDICARE, BC ==
[2025-05-17] MEDS ORDERED: 50% Dextrose in Water 50 ML Syringe IVPUSH PRN (00:37)
[2025-05-17] MEDS: Insulin Regular, Human 100 Units/ML 10 ML Vial SUBCUT ONE (00:50)
[2025-05-17 07:29] VITALS: BP 151/57; PULSE 76
== END 2025-05-17 07:31 | disposition home or self-care (01) ==
LOC: JP.ED 00:23
DX: E10.649 Type 1 diabetes mellitus with hypoglycemia without coma (principal); I10 Essential (primary) hypertension; E78.00 Pure hypercholesterolemia, unspecified; F17.200 Nicotine dependence, unspecified, uncomplicated; Z90.49 Acquired absence of other specified parts of digestive tract; Z79.899 Other long term (current) drug therapy; Z79.02 Long term (current) use of antithrombotics/antiplatelets; Z79.4 Long term (current) use of insulin; Z88.0 Allergy status to penicillin
CPT/HCPCS: 82947; 99285; A9270